=== PATIENT | male | born 1965 | race Caucasian/White ===

== ENCOUNTER 2016-09-22 22:31 | Emergency (ER) | payer MEDICAID ==
[~2016-09-22] VITALS: Ht 154.9 cm; Wt 79.5 kg
[~2016-09-22 22:31] MED LIST: CA C1TAB73 PO; DULO30CA2 PO; FOLI1TAB15 PO; HC2530O TP; QUET400T PO; TRAZ-144 PO; [UNRECOGNIZED DRUG - CODE]; [UNRECOGNIZED DRUG - OTHER]
[2016-09-22 23:24] LABS: BASOPHILS # (AUTO) 0.06 K/uL (0.00-0.20); BASOPHILS % (AUTO) 0.7 % (0.0-2.0); EOSINOPHILS # (AUTO) 0.45 K/uL (0.00-0.70); EOSINOPHILS % (AUTO) 5.37 % (1.0-6.0); HEMATOCRIT 38.2 % (41-53); LYMPHOCYTES # (AUTO) 2.4 K/uL (1.0-4.8); LYMPHOCYTES % (AUTO) 28.2 % (22.0-44.0); MEAN CORPUSCULAR HEMOGLOBIN 30.5 pg (26.0-34.0); MEAN CORPUSCULAR VOLUME 90 fL (80-100); MONOCYTES % (AUTO) 11.3 % (2.0-9.0); NEUTROPHILS # (AUTO) 4.6 K/uL (1.8-7.7); NEUTROPHILS % (AUTO) 54.5 % (40.0-70.0); PLATELET COUNT (AUTO) 314 K/uL (150-450); RED BLOOD CELL COUNT(AUTO) 4.26 MIL/uL (4.50-5.90); RED CELL DISTRIBUTION WIDTH 13.4 % (11.5-14.5); WHITE BLOOD COUNT (AUTO) 8.5 K/uL (4.5-11.0)
[2016-09-22 23:34] LABS: ANION GAP 8 mmol/L (8-16); CALCIUM, TOTAL 8.6 mg/dL (8.8-10.5); CARBON DIOXIDE 28 mmol/L (22-29); CHLORIDE 105 mmol/L (98-107); CREATININE 0.78 mg/dL (0.60-1.30); GLOMERULAR FILTR. RATE CALC > 60 mL/min (>60); POTASSIUM 3.9 mmol/L (3.5-5.1); SODIUM SERUM 141 mmol/L (136-145); UREA NITROGEN, BLOOD 9 mg/dL (7-18)
[2016-09-22 23:40] LABS: ALANINE AMINOTRANSFERASE 60 U/L (12-78); ALBUMIN 3.6 g/dL (3.4-5.0); ASPARTATE AMINOTRANSFERASE 41 U/L (15-37); BILIRUBIN,TOTAL 0.3 mg/dL (0.1-1.0); TOTAL PROTEIN, SERUM 7.2 g/dL (6.4-8.2)
[2016-09-23 08:31] VITALS: BP 113/89
== END 2016-09-23 09:06 | disposition home or self-care (01) ==
LOC: EMS 22:32
DX: L03.115 Cellulitis of right lower limb (principal); F17.210 Nicotine dependence, cigarettes, uncomplicated; G20 Parkinson's disease; Z88.0 Allergy status to penicillin; G89.4 Chronic pain syndrome
CPT/HCPCS: 36415; 80053; 80307; 85025; 99285; G0480

== ENCOUNTER 2016-09-30 10:19 | Inpatient (IN) | payer MEDICAID ==
[~2016-09-30] VITALS: Ht 170.2 cm; Wt 68.1 kg
[~2016-09-30 10:19] MED LIST changes: -CA C1TAB73 PO; -FOLI1TAB15 PO; -[UNRECOGNIZED DRUG - CODE]; -[UNRECOGNIZED DRUG - OTHER]
[2016-09-30] MEDS ORDERED: DiphenhydrAMINE HCL 50 MG/ML VIAL IM ONE (10:45)
[2016-09-30] MEDS ORDERED: LORazepam 2 MG/ML VIAL IM ONE (10:45)
[2016-09-30] MEDS ORDERED: HALOPERIDOL LACTATE 5 MG/ML VIAL IM ONE (10:45)
[2016-09-30 11:11] LABS: BASOPHILS % (AUTO) 0.7 % (0.0-2.0); EOSINOPHILS % (AUTO) 5.2 % (1.0-6.0); HEMATOCRIT 40.7 % (41-53); HEMOGLOBIN 13.7 g/dL (13.5-17.5); LYMPHOCYTES # (AUTO) 1.9 K/uL (1.0-4.8); LYMPHOCYTES % (AUTO) 22.2 % (22.0-44.0); MEAN CORPUSCULAR HEMOGLOBIN 29.9 pg (26.0-34.0); MEAN CORPUSCULAR HGB CONC 33.6 G/dL (31.0-37.0); MEAN CORPUSCULAR VOLUME 89 fL (80-100); MONOCYTES % (AUTO) 11.7 % (2.0-9.0); NEUTROPHILS % (AUTO) 60.2 % (40.0-70.0); PLATELET COUNT (AUTO) 382 K/uL (150-450); RED BLOOD CELL COUNT(AUTO) 4.57 MIL/uL (4.50-5.90); RED CELL DISTRIBUTION WIDTH 13.9 % (11.5-14.5); WHITE BLOOD COUNT (AUTO) 8.3 K/uL (4.5-11.0)
[2016-09-30 11:16] LABS: ANION GAP 9 mmol/L (8-16); CALCIUM, TOTAL 9.4 mg/dL (8.8-10.5); CARBON DIOXIDE 31 mmol/L (22-29); CHLORIDE 105 mmol/L (98-107); CREATININE 0.94 mg/dL (0.60-1.30); GLOMERULAR FILTR. RATE CALC > 60 mL/min (>60); POTASSIUM 4.3 mmol/L (3.5-5.1); SODIUM SERUM 145 mmol/L (136-145); UREA NITROGEN, BLOOD 14 mg/dL (7-18)
[2016-09-30 11:21] LABS: ALANINE AMINOTRANSFERASE 71 U/L (12-78); ALBUMIN 3.9 g/dL (3.4-5.0); ASPARTATE AMINOTRANSFERASE 42 U/L (15-37); BILIRUBIN,TOTAL 0.3 mg/dL (0.1-1.0)
[2016-09-30] MEDS ORDERED: OLANZapine 5 MG RAPDIS TABLET PO PRN (15:15)
[2016-10-01] MEDS: LORazepam 2 MG TABLET PO PRN (01:54)
[2016-10-01 09:24] LABS: CHOL/HDL RATIO 2.1 (4.2-7.3)
[2016-10-01 13:17] VITALS: BP 128/81
[2016-10-01] MEDS ORDERED: TUBERCULIN, PURIFIED PROTEIN DERIVATIVE 5 TU/0.1 ML SYG ID ONE (13:45)
[2016-10-01] MEDS ORDERED: LOPERAMIDE HCL 2 MG CAPSULE PO PRN (13:45)
[2016-10-01] MEDS ORDERED: MAG HYDROX/AL HYDROX/SIMETH ES 30 ML SUSPENSION UDCUP PO PRN (13:45)
[2016-10-01] MEDS ORDERED: MAGNESIUM HYDROXIDE SUSPENSION 30 ML UDCUP PO PRN (13:45)
[2016-10-01] MEDS ORDERED: QUEtiapine FUMARATE 100 MG TABLET PO PRN (13:45)
[2016-10-01] MEDS ORDERED: ACETAMINOPHEN 325 MG TABLET PO PRN (13:45)
[2016-10-01] MEDS ORDERED: PROMETHAZINE HCL 25 MG TABLET PO PRN (13:45)
[2016-10-01] MEDS ORDERED: GuaiFENesin/D-METHORPHAN [SUGAR-FREE] 200-20MG/10 ML SYRUP UDCUP PO PRN (13:45)
[2016-10-01] MEDS ORDERED: PNEUMOCOCCAL VACCINE POLYVALENT 0.5 ML VIAL [PPSV23] IM ONE (14:00)
[2016-10-01] MEDS: GABAPENTIN 100 MG CAPSULE PO SCH ×2 (16:23→21:00)
[2016-10-01 17:32] VITALS: BP 132/89
[2016-10-01] MEDS ORDERED: HALOPERIDOL LACTATE 5 MG/ML VIAL IM ONE (20:30)
[2016-10-01] MEDS ORDERED: DiphenhydrAMINE HCL 50 MG/ML VIAL IM ONE (20:30)
[2016-10-01] MEDS ORDERED: LORazepam 2 MG/ML VIAL IM ONE (20:30)
[2016-10-01] MEDS ORDERED: DiphenhydrAMINE HCL 50 MG/ML VIAL ONE (20:36)
[2016-10-01] MEDS ORDERED: HALOPERIDOL LACTATE 5 MG/ML VIAL ONE (20:36)
[2016-10-01] MEDS: THIAMINE HCL 100 MG TABLET PO SCH (21:00)
[2016-10-01] MEDS: QUEtiapine FUMARATE 200 MG TABLET PO SCH (21:00)
[2016-10-02 05:28] VITALS: BP 128/85
[2016-10-02 08:40] VITALS: BP 107/67
[2016-10-02] MEDS: LORazepam 2 MG TABLET PO PRN (08:45)
[2016-10-02] MEDS: MULTIVITAMINS WITH MINERALS, THERAPEUTIC TABLET PO SCH (08:45)
[2016-10-02] MEDS: GABAPENTIN 100 MG CAPSULE PO SCH ×5 (08:45→20:53)
[2016-10-02] MEDS: HydrOXYzine PAMOATE 50 MG CAPSULE PO PRN (08:45)
[2016-10-02] MEDS: THIAMINE HCL 100 MG TABLET PO SCH ×2 (08:46→16:31)
[2016-10-02] MEDS: DULoxetine HCL 20 MG CAPSULE PO SCH (08:46)
[2016-10-02] MEDS: FOLIC ACID 1 MG TABLET PO SCH (08:46)
[2016-10-02 17:51] VITALS: BP 120/77
[2016-10-02] MEDS: QUEtiapine FUMARATE 200 MG TABLET PO SCH (20:53)
[2016-10-03] MEDS: DULoxetine HCL 20 MG CAPSULE PO SCH (08:18)
[2016-10-03] MEDS: GABAPENTIN 100 MG CAPSULE PO SCH ×4 (08:18→20:50)
[2016-10-03] MEDS: MULTIVITAMINS WITH MINERALS, THERAPEUTIC TABLET PO SCH (08:18)
[2016-10-03] MEDS: THIAMINE HCL 100 MG TABLET PO SCH ×2 (08:18→16:56)
[2016-10-03] MEDS: FOLIC ACID 1 MG TABLET PO SCH (08:18)
[2016-10-03 09:05] VITALS: BP 159/111
[2016-10-03] MEDS: NICOTINE 21 MG/24 HOUR PATCH TD SCH (09:39)
[2016-10-03] MEDS: LORazepam 2 MG TABLET PO PRN (10:21)
[2016-10-03] MEDS: HydrOXYzine PAMOATE 50 MG CAPSULE PO PRN (10:21)
[2016-10-03 18:13] VITALS: BP 122/90
[2016-10-03] MEDS: QUEtiapine FUMARATE 200 MG TABLET PO SCH (20:50)
[2016-10-04] MEDS: ZOLPIDEM TARTRATE 10 MG TABLET PO PRN (02:49)
[2016-10-04 02:58] VITALS: BP 116/78
[2016-10-04 08:53] VITALS: BP 108/83
[2016-10-04] MEDS: THIAMINE HCL 100 MG TABLET PO SCH ×2 (09:16→17:45)
[2016-10-04] MEDS: GABAPENTIN 100 MG CAPSULE PO SCH ×4 (09:16→20:57)
[2016-10-04] MEDS: MULTIVITAMINS WITH MINERALS, THERAPEUTIC TABLET PO SCH (09:16)
[2016-10-04] MEDS: DULoxetine HCL 20 MG CAPSULE PO SCH (09:16)
[2016-10-04] MEDS: FOLIC ACID 1 MG TABLET PO SCH (09:16)
[2016-10-04] MEDS: NICOTINE 21 MG/24 HOUR PATCH TD SCH (09:22)
[2016-10-04 16:30] VITALS: BP 118/81
[2016-10-04] MEDS ORDERED: GABA-529 PO (16:54)
[2016-10-04] MEDS ORDERED: DULO20CA30 PO (16:54)
[2016-10-04] MEDS ORDERED: QUET200T29 PO (16:54)
[2016-10-04] MEDS: QUEtiapine FUMARATE 200 MG TABLET PO SCH (20:58)
[2016-10-04] MEDS ORDERED: NICOTINE 21 MG/24 HOUR PATCH TD ONE (21:00)
[2016-10-05] MEDS: ZOLPIDEM TARTRATE 10 MG TABLET PO PRN (00:10)
[2016-10-05] MEDS: GABAPENTIN 100 MG CAPSULE PO SCH (08:26)
[2016-10-05] MEDS: THIAMINE HCL 100 MG TABLET PO SCH (08:26)
[2016-10-05] MEDS: MULTIVITAMINS WITH MINERALS, THERAPEUTIC TABLET PO SCH (08:26)
[2016-10-05] MEDS: DULoxetine HCL 20 MG CAPSULE PO SCH (08:26)
[2016-10-05] MEDS: FOLIC ACID 1 MG TABLET PO SCH (08:26)
[2016-10-05] MEDS: NICOTINE 21 MG/24 HOUR PATCH TD SCH (08:34)
== END 2016-10-05 12:45 | disposition home or self-care (01) | DRG 751 ==
LOC: EEVIPCON 10:20 → EMS 10:20 → AHU 10-01 12:11 → 3EC 10-01 21:00
PROVIDERS: ADMIT Psychiatry & Neurology Psychiatry; ATTEND Psychiatry & Neurology Psychiatry
DX: F29 Unspecified psychosis not due to a substance or known physiological condition (principal); G20 Parkinson's disease; F25.9 Schizoaffective disorder, unspecified; G35 Multiple sclerosis; J44.9 Chronic obstructive pulmonary disease, unspecified; B19.20 Unspecified viral hepatitis C without hepatic coma; R45.87 Impulsiveness; F17.210 Nicotine dependence, cigarettes, uncomplicated; G89.29 Other chronic pain; Z91.19 Patient's noncompliance with other medical treatment and regimen; Z59.0 Homelessness; Z79.899 Other long term (current) drug therapy; Z80.0 Family history of malignant neoplasm of digestive organs; Z82.0 Family history of epilepsy and other diseases of the nervous system; Z90.49 Acquired absence of other specified parts of digestive tract; Z59.9 Problem related to housing and economic circumstances, unspecified; Q79.8 Other congenital malformations of musculoskeletal system; Z88.6 Allergy status to analgesic agent; Z88.0 Allergy status to penicillin; Z28.21 Immunization not carried out because of patient refusal; F32.9 Major depressive disorder, single episode, unspecified
CPT/HCPCS: 96372; 99285; G0480; J1200; J1630; J2060

== ENCOUNTER 2016-10-09 16:37 | Emergency (ER) | payer MEDICAID ==
[~2016-10-09] VITALS: Ht 170.2 cm; Wt 81.0 kg
[~2016-10-09 16:37] MED LIST changes: +DULO20CA30 PO; -DULO30CA2 PO; +GABA-529 PO; -HC2530O TP; +QUET200T29 PO; -QUET400T PO; -TRAZ-144 PO
[2016-10-09] MEDS: AZITHROMYCIN 250 MG TABLET PO ONE ×2 (18:47→19:50)
[2016-10-09] MEDS: KETOROLAC TROMETHAMINE 60 MG/2 ML VIAL IM ONE ×2 (18:47→19:48)
[2016-10-09 19:30] VITALS: BP 152/89
[2016-10-09] MEDS ORDERED: CefTRIAXone SODIUM 1 GM/VIAL IM ONE (19:45)
[2016-10-09] MEDS ORDERED: LIDOCAINE HCL/PF 1% 2 ML VIAL IM ONE (19:45)
== END 2016-10-09 20:06 | disposition home or self-care (01) ==
LOC: EMS 16:38
DX: M79.671 Pain in right foot (principal); J32.9 Chronic sinusitis, unspecified; F25.9 Schizoaffective disorder, unspecified; F17.210 Nicotine dependence, cigarettes, uncomplicated; F11.90 Opioid use, unspecified, uncomplicated; F19.90 Other psychoactive substance use, unspecified, uncomplicated; Z88.0 Allergy status to penicillin; Z88.5 Allergy status to narcotic agent
CPT/HCPCS: 96372; 99284; 99406; J0696; J1885; J3490

== ENCOUNTER 2016-10-16 18:25 | Emergency (ER) | payer MEDICAID ==
[~2016-10-16] VITALS: Ht 165.1 cm; Wt 81.8 kg
[2016-10-16 22:09] VITALS: BP 128/88
== END 2016-10-16 22:12 | disposition home or self-care (01) ==
LOC: EMS 18:27
DX: S90.31XA Contusion of right foot, initial encounter (principal); F17.210 Nicotine dependence, cigarettes, uncomplicated; F11.90 Opioid use, unspecified, uncomplicated; F19.90 Other psychoactive substance use, unspecified, uncomplicated; Z88.0 Allergy status to penicillin; X58.XXXA Exposure to other specified factors, initial encounter; Y93.01 Activity, walking, marching and hiking; Y92.89 Other specified places as the place of occurrence of the external cause; Y99.8 Other external cause status
CPT/HCPCS: 99284

== ENCOUNTER 2017-04-15 10:33 | Inpatient (IN) | payer MEDICAID ==
[~2017-04-15] VITALS: Ht 167.6 cm; Wt 78.2 kg
[2017-04-15 11:14] LABS: ANION GAP 7 mmol/L (8-16); BASOPHILS % (AUTO) 0.2 % (0.0-2.0); CALCIUM, TOTAL 9.5 mg/dL (8.8-10.5); CARBON DIOXIDE 27 mmol/L (22-29); CHLORIDE 104 mmol/L (98-107); CREATININE 0.75 mg/dL (0.60-1.30); GLOMERULAR FILTR. RATE CALC > 60 mL/min (>60); GLUCOSE,RANDOM 100 mg/dL (70-110); HEMOGLOBIN 15.1 g/dL (13.5-17.5); LYMPHOCYTES # (AUTO) 1.3 K/uL (1.0-4.8); LYMPHOCYTES % (AUTO) 16.1 % (22.0-44.0); MEAN CORPUSCULAR HEMOGLOBIN 29.1 pg (26.0-34.0); MEAN CORPUSCULAR HGB CONC 33.6 G/dL (31.0-37.0); MEAN CORPUSCULAR VOLUME 86 fL (80-100); MONOCYTES # (AUTO) 0.6 K/uL (0.1-1.0); MONOCYTES % (AUTO) 7.2 % (2.0-9.0); NEUTROPHILS % (AUTO) 72.5 % (40.0-70.0); PLATELET COUNT (AUTO) 409 K/uL (150-450); POTASSIUM 4.8 mmol/L (3.5-5.1); RED BLOOD CELL COUNT(AUTO) 5.21 MIL/uL (4.50-5.90); RED CELL DISTRIBUTION WIDTH 14.4 % (11.5-14.5); SODIUM SERUM 138 mmol/L (136-145); UREA NITROGEN, BLOOD 14 mg/dL (7-18)
[2017-04-15 11:19] LABS: ALANINE AMINOTRANSFERASE 94 U/L (12-78); ALBUMIN 3.8 g/dL (3.4-5.0); ALKALINE PHOSPHATASE 91 U/L (46-116); ASPARTATE AMINOTRANSFERASE 61 U/L (15-37); BILIRUBIN,TOTAL 0.5 mg/dL (0.1-1.0); TOTAL PROTEIN, SERUM 7.8 g/dL (6.4-8.2)
[2017-04-15 12:14] LABS: AMPHET/METH SCREEN,URINE NEGATIVE (NEGATIVE); BARBITURATE SCREEN, URINE NEGATIVE (NEGATIVE); BENZODIAZEPINES SCREEN,URINE NEGATIVE (NEGATIVE); CANNABINOID SCREEN,URINE NEGATIVE (NEGATIVE); COCAINE SCREEN,URINE NEGATIVE (NEGATIVE); METHADONE SCREEN, URINE NEGATIVE (NEGATIVE); OPIATE SCREEN,URINE NEGATIVE (NEGATIVE)
[2017-04-15 12:16] LABS: PHENCYCLIDINE SCREEN,URINE NEGATIVE (NEGATIVE)
[2017-04-15] MEDS ORDERED: QUEtiapine FUMARATE 100 MG TABLET PO ONE (17:00)
[2017-04-15] MEDS ORDERED: LORazepam 2 MG TABLET PO ONE (17:00)
[2017-04-15] MEDS: QUEtiapine FUMARATE 200 MG TABLET PO SCH (21:00)
[2017-04-16] MEDS: HALOPERIDOL 5 MG TABLET PO PRN (10:29)
[2017-04-16] MEDS: LORazepam 2 MG TABLET PO PRN (10:29)
[2017-04-16 17:00] VITALS: BP 103/61
[2017-04-16 20:04] VITALS: BP 101/60
[2017-04-16] MEDS: QUEtiapine FUMARATE 200 MG TABLET PO SCH (20:30)
[2017-04-17 06:03] VITALS: BP 106/71
[2017-04-17] MEDS ORDERED: MOMETASONE FUROATE 50 MCG/SPRAY 17 GM NASAL SPRAY NASAL PRN ×2 (07:45→12:30)
[2017-04-17 08:05] VITALS: BP 126/46
[2017-04-17 08:27] VITALS: BP 103/65
[2017-04-17] MEDS: DULoxetine HCL 20 MG CAPSULE PO SCH (11:59)
[2017-04-17] MEDS: GABAPENTIN 100 MG CAPSULE PO SCH ×3 (14:07→21:00)
[2017-04-17] MEDS ORDERED: LORazepam 2 MG/ML VIAL ONE (16:37)
[2017-04-17] MEDS ORDERED: HALOPERIDOL LACTATE 5 MG/ML VIAL ONE (16:37)
[2017-04-17] MEDS ORDERED: DiphenhydrAMINE HCL 50 MG/ML VIAL ONE (16:38)
[2017-04-17] MEDS ORDERED: DiphenhydrAMINE HCL 50 MG/ML VIAL IM ONE (16:45)
[2017-04-17] MEDS ORDERED: HALOPERIDOL LACTATE 5 MG/ML VIAL IM ONE (16:45)
[2017-04-17] MEDS ORDERED: LORazepam 2 MG/ML VIAL IM ONE (16:45)
[2017-04-17 18:53] VITALS: BP 118/73
[2017-04-17] MEDS: QUEtiapine FUMARATE 200 MG TABLET PO SCH (21:00)
[2017-04-18] MEDS: LORazepam 2 MG TABLET PO PRN ×2 (02:30→08:52)
[2017-04-18 02:46] VITALS: BP 114/69
[2017-04-18] MEDS: ZOLPIDEM TARTRATE 10 MG TABLET PO PRN (02:51)
[2017-04-18] MEDS: HALOPERIDOL 5 MG TABLET PO PRN ×2 (02:51→08:52)
[2017-04-18] MEDS: DULoxetine HCL 20 MG CAPSULE PO SCH (08:51)
[2017-04-18] MEDS: GABAPENTIN 100 MG CAPSULE PO SCH ×5 (08:51→20:55)
[2017-04-18] MEDS: CHOLECALCIFEROL (VIT D3) 1,000 UNITS TABLET PO SCH (08:52)
[2017-04-18 16:44] VITALS: BP 115/72
[2017-04-18] MEDS: QUEtiapine FUMARATE 200 MG TABLET PO SCH (20:55)
[2017-04-19 00:15] VITALS: BP 137/77
[2017-04-19 08:01] VITALS: BP 116/71
[2017-04-19] MEDS: CHOLECALCIFEROL (VIT D3) 1,000 UNITS TABLET PO SCH (08:48)
[2017-04-19] MEDS: LORazepam 2 MG TABLET PO PRN (08:48)
[2017-04-19] MEDS: GABAPENTIN 100 MG CAPSULE PO SCH ×4 (08:48→20:54)
[2017-04-19] MEDS: HALOPERIDOL 5 MG TABLET PO PRN (08:48)
[2017-04-19] MEDS: DULoxetine HCL 20 MG CAPSULE PO SCH (08:49)
[2017-04-19] MEDS: QUEtiapine FUMARATE 200 MG TABLET PO SCH (08:49)
[2017-04-19 17:07] VITALS: BP 109/76
[2017-04-20] MEDS: DULoxetine HCL 20 MG CAPSULE PO SCH (09:25)
[2017-04-20] MEDS: GABAPENTIN 100 MG CAPSULE PO SCH ×4 (09:25→20:07)
[2017-04-20] MEDS: CHOLECALCIFEROL (VIT D3) 1,000 UNITS TABLET PO SCH (09:25)
[2017-04-20 10:00] VITALS: BP 110/68
[2017-04-20 17:24] VITALS: BP 109/78
[2017-04-20] MEDS: QUEtiapine FUMARATE 200 MG TABLET PO SCH (20:07)
[2017-04-20] MEDS: ZOLPIDEM TARTRATE 10 MG TABLET PO PRN (20:35)
[2017-04-21] MEDS: GABAPENTIN 100 MG CAPSULE PO SCH ×4 (08:48→20:31)
[2017-04-21] MEDS: DULoxetine HCL 20 MG CAPSULE PO SCH (08:48)
[2017-04-21] MEDS: CHOLECALCIFEROL (VIT D3) 1,000 UNITS TABLET PO SCH (08:48)
[2017-04-21 09:10] VITALS: BP 111/66
[2017-04-21 18:53] VITALS: BP 120/74
[2017-04-21] MEDS: QUEtiapine FUMARATE 200 MG TABLET PO SCH (20:31)
[2017-04-22] MEDS: CHOLECALCIFEROL (VIT D3) 1,000 UNITS TABLET PO SCH (09:14)
[2017-04-22] MEDS: DULoxetine HCL 20 MG CAPSULE PO SCH (09:14)
[2017-04-22] MEDS: GABAPENTIN 100 MG CAPSULE PO SCH ×4 (09:14→20:53)
[2017-04-22 09:28] VITALS: BP 112/60
[2017-04-22 11:00] VITALS: BP 96/75
[2017-04-22 11:12] VITALS: BP 96/75
[2017-04-22] MEDS ORDERED: IBUPROFEN 600 MG TABLET PO PRN (11:30)
[2017-04-22] MEDS ORDERED: ACETAMINOPHEN 325 MG TABLET PO PRN (11:30)
[2017-04-22 16:00] VITALS: BP 105/63
[2017-04-22] MEDS: BACITRACIN 28.4 GM OINTMENT TP SCH (17:50)
[2017-04-22] MEDS: QUEtiapine FUMARATE 200 MG TABLET PO SCH (20:54)
[2017-04-23 08:19] VITALS: BP 119/71
[2017-04-23] MEDS: GABAPENTIN 100 MG CAPSULE PO SCH ×4 (08:24→20:20)
[2017-04-23] MEDS: CHOLECALCIFEROL (VIT D3) 1,000 UNITS TABLET PO SCH (08:24)
[2017-04-23] MEDS: DULoxetine HCL 20 MG CAPSULE PO SCH (08:24)
[2017-04-23] MEDS: BACITRACIN 28.4 GM OINTMENT TP SCH ×2 (08:25→16:35)
[2017-04-23 16:01] VITALS: BP 102/65
[2017-04-23] MEDS: QUEtiapine FUMARATE 200 MG TABLET PO SCH (20:20)
[2017-04-24] MEDS ORDERED: LORazepam 2 MG TABLET PO PRN (02:15)
[2017-04-24] MEDS ORDERED: ZOLPIDEM TARTRATE 10 MG TABLET PO PRN (02:15)
[2017-04-24] MEDS: CHOLECALCIFEROL (VIT D3) 1,000 UNITS TABLET PO SCH (08:37)
[2017-04-24] MEDS: GABAPENTIN 100 MG CAPSULE PO SCH ×4 (08:37→20:20)
[2017-04-24] MEDS: BACITRACIN 28.4 GM OINTMENT TP SCH ×2 (08:38→16:23)
[2017-04-24] MEDS: DULoxetine HCL 20 MG CAPSULE PO SCH (08:38)
[2017-04-24 09:32] VITALS: BP 122/69
[2017-04-24 17:30] VITALS: BP 142/71
[2017-04-24] MEDS: QUEtiapine FUMARATE 200 MG TABLET PO SCH (20:20)
[2017-04-25 08:00] VITALS: BP 113/70
[2017-04-25] MEDS: DULoxetine HCL 20 MG CAPSULE PO SCH (08:55)
[2017-04-25] MEDS: CHOLECALCIFEROL (VIT D3) 1,000 UNITS TABLET PO SCH (08:56)
[2017-04-25] MEDS: GABAPENTIN 100 MG CAPSULE PO SCH ×4 (08:56→20:22)
[2017-04-25] MEDS: BACITRACIN 28.4 GM OINTMENT TP SCH ×2 (08:57→16:42)
[2017-04-25 16:18] VITALS: BP 125/74
[2017-04-25] MEDS: QUEtiapine FUMARATE 200 MG TABLET PO SCH (20:22)
[2017-04-26] MEDS: DULoxetine HCL 20 MG CAPSULE PO SCH (09:03)
[2017-04-26] MEDS: BACITRACIN 28.4 GM OINTMENT TP SCH ×2 (09:03→17:30)
[2017-04-26] MEDS: CHOLECALCIFEROL (VIT D3) 1,000 UNITS TABLET PO SCH (09:03)
[2017-04-26] MEDS: GABAPENTIN 100 MG CAPSULE PO SCH ×4 (09:03→20:26)
[2017-04-26 16:08] VITALS: BP 121/78
[2017-04-26] MEDS: QUEtiapine FUMARATE 200 MG TABLET PO SCH (20:26)
[2017-04-27] MEDS: DULoxetine HCL 20 MG CAPSULE PO SCH (08:37)
[2017-04-27] MEDS: CHOLECALCIFEROL (VIT D3) 1,000 UNITS TABLET PO SCH (08:37)
[2017-04-27] MEDS: GABAPENTIN 100 MG CAPSULE PO SCH ×4 (08:37→20:38)
[2017-04-27] MEDS: BACITRACIN 28.4 GM OINTMENT TP SCH ×2 (08:54→17:51)
[2017-04-27 16:02] VITALS: BP 121/73
[2017-04-27] MEDS: QUEtiapine FUMARATE 200 MG TABLET PO SCH (20:38)
[2017-04-28] MEDS: GABAPENTIN 100 MG CAPSULE PO SCH ×2 (08:27→12:34)
[2017-04-28] MEDS: CHOLECALCIFEROL (VIT D3) 1,000 UNITS TABLET PO SCH (08:27)
[2017-04-28] MEDS: DULoxetine HCL 20 MG CAPSULE PO SCH (08:27)
[2017-04-28 09:00] VITALS: BP 118/67
[2017-04-28] MEDS: BACITRACIN 28.4 GM OINTMENT TP SCH (11:54)
[2017-04-28] MEDS ORDERED: GABA-529 PO (12:32)
[2017-04-28] MEDS ORDERED: QUET200T PO (12:32)
[2017-04-28] MEDS ORDERED: VITAD1000 PO (12:32)
[2017-04-28] MEDS ORDERED: DULO20CA30 PO (12:32)
== END 2017-04-28 16:15 | disposition home or self-care (01) | DRG 750 ==
LOC: EMS 10:35 → AHU 04-16 08:08 → 3EC 04-19 00:05
PROVIDERS: ADMIT Psychiatry & Neurology Psychiatry; ATTEND Psychiatry & Neurology Child & Adolescent Psychiatry
DX: F25.9 Schizoaffective disorder, unspecified (principal); G20 Parkinson's disease; R45.851 Suicidal ideations; G35 Multiple sclerosis; R45.850 Homicidal ideations; G89.4 Chronic pain syndrome; F11.90 Opioid use, unspecified, uncomplicated; F15.90 Other stimulant use, unspecified, uncomplicated; F17.210 Nicotine dependence, cigarettes, uncomplicated; Z88.5 Allergy status to narcotic agent; Z88.0 Allergy status to penicillin
CPT/HCPCS: 82652; 87081; 92610; 97163; 97166; 97530; 97535; 99285; G0480; J1200; J1630; J2060

== ENCOUNTER 2017-10-26 08:19 | Inpatient (IN) | payer MEDICAID ==
[~2017-10-26] VITALS: Ht 165.1 cm; Wt 72.7 kg
[~2017-10-26 08:19] MED LIST changes: +QUET200T PO; -QUET200T29 PO; +VITAD1000 PO
[2017-10-26 08:55] LABS: BASOPHILS % (AUTO) 1.4 % (0.0-2.0); EOSINOPHILS % (AUTO) 5.2 % (1.0-6.0); HEMATOCRIT 44.1 % (41-53); HEMOGLOBIN 14.9 g/dL (13.5-17.5); LYMPHOCYTES # (AUTO) 1.9 K/uL (1.0-4.8); MEAN CORPUSCULAR HEMOGLOBIN 29.5 pg (26.0-34.0); MEAN CORPUSCULAR HGB CONC 33.8 G/dL (31.0-37.0); MEAN CORPUSCULAR VOLUME 87 fL (80-100); MONOCYTES # (AUTO) 0.7 K/uL (0.1-1.0); MONOCYTES % (AUTO) 10.2 % (2.0-9.0); NEUTROPHILS # (AUTO) 3.5 K/uL (1.8-7.7); NEUTROPHILS % (AUTO) 54.2 % (40.0-70.0); PLATELET COUNT (AUTO) 262 K/uL (150-450); RED BLOOD CELL COUNT(AUTO) 5.06 MIL/uL (4.50-5.90); RED CELL DISTRIBUTION WIDTH 13.7 % (11.5-14.5)
[2017-10-26 09:07] LABS: ANION GAP 8 mmol/L (8-16); CALCIUM, TOTAL 9.1 mg/dL (8.8-10.5); CARBON DIOXIDE 30 mmol/L (22-29); CHLORIDE 104 mmol/L (98-107); CREATININE 0.93 mg/dL (0.60-1.30); GLOMERULAR FILTR. RATE CALC > 60 mL/min (>60); GLUCOSE,RANDOM 93 mg/dL (70-110); POTASSIUM 4.3 mmol/L (3.5-5.1); SODIUM SERUM 142 mmol/L (136-145); UREA NITROGEN, BLOOD 6 mg/dL (7-18)
[2017-10-26 09:21] LABS: ALANINE AMINOTRANSFERASE 94 U/L (12-78); ALBUMIN 3.9 g/dL (3.4-5.0); ALKALINE PHOSPHATASE 84 U/L (46-116); ASPARTATE AMINOTRANSFERASE 47 U/L (15-37); BILIRUBIN,TOTAL 0.4 mg/dL (0.1-1.0); TOTAL PROTEIN, SERUM 7.4 g/dL (6.4-8.2)
[2017-10-26] MEDS ORDERED: QUEtiapine FUMARATE 100 MG TABLET PO PRN (11:15)
[2017-10-26] MEDS ORDERED: LORazepam 2 MG TABLET PO PRN (11:15)
[2017-10-26] MEDS: GABAPENTIN 100 MG CAPSULE PO SCH ×3 (12:26→21:00)
[2017-10-26 14:45] LABS: AMPHET/METH SCREEN,URINE NEGATIVE (NEGATIVE); BARBITURATE SCREEN, URINE NEGATIVE (NEGATIVE); BENZODIAZEPINES SCREEN,URINE NEGATIVE (NEGATIVE); CANNABINOID SCREEN,URINE NEGATIVE (NEGATIVE); COCAINE SCREEN,URINE NEGATIVE (NEGATIVE); METHADONE SCREEN, URINE NEGATIVE (NEGATIVE); OPIATE SCREEN,URINE NEGATIVE (NEGATIVE); PHENCYCLIDINE SCREEN,URINE NEGATIVE (NEGATIVE)
[2017-10-26] MEDS: QUEtiapine FUMARATE 200 MG TABLET PO SCH (21:00)
[2017-10-26] MEDS ORDERED: ACETAMINOPHEN 325 MG TABLET PO PRN (21:15)
[2017-10-26] MEDS ORDERED: BACITRACIN 28.4 GM OINTMENT TP PRN (21:15)
[2017-10-26] MEDS ORDERED: IBUPROFEN 600 MG TABLET PO PRN (21:15)
[2017-10-26] MEDS ORDERED: CloNIDine HCL 0.1 MG TABLET PO PRN (21:15)
[2017-10-26] MEDS ORDERED: LOPERAMIDE HCL 2 MG CAPSULE PO PRN (21:15)
[2017-10-26] MEDS ORDERED: BENZOCAINE/MENTHOL LOZENGE MM PRN (21:15)
[2017-10-26] MEDS ORDERED: ALBUTEROL SULFATE HFA 90 MCG/PUFF 8 GM INHALER IH PRN (21:15)
[2017-10-26] MEDS ORDERED: MAG HYDROX/AL HYDROX/SIMETH ES 30 ML SUSPENSION UDCUP PO PRN (21:15)
[2017-10-26] MEDS ORDERED: ONDANSETRON HCL 4 MG TABLET PO PRN (21:15)
[2017-10-26] MEDS ORDERED: MAGNESIUM HYDROXIDE SUSPENSION 30 ML UDCUP PO PRN (21:15)
[2017-10-26] MEDS ORDERED: PETROLATUM,WHITE 71 GM JELLY TP PRN (21:15)
[2017-10-27 08:30] VITALS: BP 116/65
[2017-10-27] MEDS: DOCUSATE SODIUM 100 MG CAPSULE PO SCH (08:42)
[2017-10-27] MEDS: DULoxetine HCL 20 MG CAPSULE PO SCH (08:42)
[2017-10-27] MEDS: GABAPENTIN 100 MG CAPSULE PO SCH ×4 (08:42→20:17)
[2017-10-27] MEDS: OMEPRAZOLE 20 MG CAPSULE PO SCH (08:42)
[2017-10-27 16:23] VITALS: BP 114/78
[2017-10-27] MEDS: QUEtiapine FUMARATE 200 MG TABLET PO SCH (20:18)
[2017-10-27] MEDS: ZOLPIDEM TARTRATE 10 MG TABLET PO PRN (20:20)
[2017-10-28] MEDS: DOCUSATE SODIUM 100 MG CAPSULE PO SCH ×2 (08:48→09:00)
[2017-10-28] MEDS: DULoxetine HCL 20 MG CAPSULE PO SCH ×2 (08:48→09:00)
[2017-10-28] MEDS: OMEPRAZOLE 20 MG CAPSULE PO SCH ×2 (08:48→09:00)
[2017-10-28] MEDS: GABAPENTIN 100 MG CAPSULE PO SCH ×5 (08:49→20:56)
[2017-10-28] MEDS: CHOLECALCIFEROL (VIT D3) 1,000 UNITS TABLET PO SCH ×2 (08:49→09:00)
[2017-10-28 18:19] VITALS: BP 111/60
[2017-10-28] MEDS: QUEtiapine FUMARATE 200 MG TABLET PO SCH (20:57)
[2017-10-28] MEDS: ZOLPIDEM TARTRATE 10 MG TABLET PO PRN (23:57)
[2017-10-29] MEDS ORDERED: DULO20CA30 PO (08:22)
[2017-10-29] MEDS ORDERED: VITAD1000 PO (08:22)
[2017-10-29] MEDS ORDERED: DSS100 PO (08:22)
[2017-10-29] MEDS ORDERED: GABA-529 PO (08:23)
[2017-10-29] MEDS ORDERED: OMEP20 PO (08:24)
[2017-10-29] MEDS ORDERED: QUET200T PO (08:25)
[2017-10-29 08:28] VITALS: BP 88/58
[2017-10-29] MEDS: OMEPRAZOLE 20 MG CAPSULE PO SCH (09:01)
[2017-10-29] MEDS: GABAPENTIN 100 MG CAPSULE PO SCH (09:01)
[2017-10-29] MEDS: DULoxetine HCL 20 MG CAPSULE PO SCH (09:01)
[2017-10-29] MEDS: CHOLECALCIFEROL (VIT D3) 1,000 UNITS TABLET PO SCH (09:01)
[2017-10-29] MEDS: DOCUSATE SODIUM 100 MG CAPSULE PO SCH (09:01)
== END 2017-10-29 09:50 | disposition home or self-care (01) | DRG 750 ==
LOC: EMS 08:20 → 3EC 19:03 → 3EI 10-27 21:36
PROVIDERS: ADMIT Psychiatry & Neurology Psychiatry; ATTEND Psychiatry & Neurology Psychiatry
DX: F25.9 Schizoaffective disorder, unspecified (principal); G20 Parkinson's disease; E55.9 Vitamin D deficiency, unspecified; B19.20 Unspecified viral hepatitis C without hepatic coma; F11.90 Opioid use, unspecified, uncomplicated; F15.90 Other stimulant use, unspecified, uncomplicated; F17.210 Nicotine dependence, cigarettes, uncomplicated; F12.90 Cannabis use, unspecified, uncomplicated; G89.29 Other chronic pain; Z88.0 Allergy status to penicillin; Z88.5 Allergy status to narcotic agent; Z59.0 Homelessness; Z79.899 Other long term (current) drug therapy; Q79.8 Other congenital malformations of musculoskeletal system; Z99.3 Dependence on wheelchair; Z90.49 Acquired absence of other specified parts of digestive tract; Z56.0 Unemployment, unspecified
CPT/HCPCS: 99285; G0480

== ENCOUNTER 2017-12-02 12:55 | Emergency (ER) | payer MEDICAID ==
[~2017-12-02] VITALS: Ht 170.2 cm; Wt 79.5 kg
[~2017-12-02 12:55] MED LIST changes: +DSS100 PO; +OMEP20 PO
[2017-12-02 13:44] LABS: AMPHET/METH SCREEN,URINE NEGATIVE (NEGATIVE); BARBITURATE SCREEN, URINE NEGATIVE (NEGATIVE); BENZODIAZEPINES SCREEN,URINE NEGATIVE (NEGATIVE); CANNABINOID SCREEN,URINE NEGATIVE (NEGATIVE); COCAINE SCREEN,URINE NEGATIVE (NEGATIVE); METHADONE SCREEN, URINE NEGATIVE (NEGATIVE); OPIATE SCREEN,URINE NEGATIVE (NEGATIVE)
[2017-12-02 13:45] LABS: PHENCYCLIDINE SCREEN,URINE NEGATIVE (NEGATIVE)
[2017-12-02 14:02] LABS: BASOPHILS % (AUTO) 0.8 % (0.0-2.0); EOSINOPHILS % (AUTO) 6.1 % (1.0-6.0); HEMATOCRIT 43.1 % (41-53); HEMOGLOBIN 14.6 g/dL (13.5-17.5); LYMPHOCYTES # (AUTO) 1.6 K/uL (1.0-4.8); LYMPHOCYTES % (AUTO) 23.4 % (22.0-44.0); MEAN CORPUSCULAR HEMOGLOBIN 29.4 pg (26.0-34.0); MEAN CORPUSCULAR HGB CONC 33.9 G/dL (31.0-37.0); MEAN CORPUSCULAR VOLUME 87 fL (80-100); MONOCYTES # (AUTO) 0.9 K/uL (0.1-1.0); MONOCYTES % (AUTO) 12.3 % (2.0-9.0); NEUTROPHILS % (AUTO) 57.4 % (40.0-70.0); PLATELET COUNT (AUTO) 281 K/uL (150-450); RED BLOOD CELL COUNT(AUTO) 4.96 MIL/uL (4.50-5.90); RED CELL DISTRIBUTION WIDTH 13.5 % (11.5-14.5)
[2017-12-02 14:18] LABS: ANION GAP 6 mmol/L (8-16); CARBON DIOXIDE 32 mmol/L (22-29); CHLORIDE 108 mmol/L (98-107); CREATININE 0.87 mg/dL (0.60-1.30); GLOMERULAR FILTR. RATE CALC > 60 mL/min (>60); GLUCOSE,RANDOM 89 mg/dL (70-110); POTASSIUM 4.3 mmol/L (3.5-5.1); SODIUM SERUM 146 mmol/L (136-145); UREA NITROGEN, BLOOD 12 mg/dL (7-18)
[2017-12-02 14:20] LABS: ALANINE AMINOTRANSFERASE 92 U/L (12-78); ALBUMIN 3.4 g/dL (3.4-5.0); ALKALINE PHOSPHATASE 81 U/L (46-116); ASPARTATE AMINOTRANSFERASE 47 U/L (15-37); BILIRUBIN,TOTAL 0.4 mg/dL (0.1-1.0); TOTAL PROTEIN, SERUM 7.3 g/dL (6.4-8.2)
[2017-12-02 15:48] VITALS: BP 118/74
== END 2017-12-02 15:57 | disposition home or self-care (01) ==
LOC: EMS 12:55
DX: F25.9 Schizoaffective disorder, unspecified (principal); G20 Parkinson's disease; F17.210 Nicotine dependence, cigarettes, uncomplicated; Q79.8 Other congenital malformations of musculoskeletal system; F11.90 Opioid use, unspecified, uncomplicated; F15.90 Other stimulant use, unspecified, uncomplicated; Z59.0 Homelessness; Z79.899 Other long term (current) drug therapy; Z88.0 Allergy status to penicillin; Z88.5 Allergy status to narcotic agent
CPT/HCPCS: 36415; 80053; 80307; 85025; 99285; 99406; G0480

== ENCOUNTER 2017-12-02 17:10 | Emergency (ER) | payer MEDICAID ==
[~2017-12-02] VITALS: Ht 172.7 cm; Wt 84.0 kg
[2017-12-02] MEDS ORDERED: OMEPRAZOLE 20 MG CAPSULE PO ONE (17:45)
[2017-12-02] MEDS ORDERED: QUEtiapine FUMARATE 100 MG TABLET PO ONE (17:45)
[2017-12-02] MEDS ORDERED: GABAPENTIN 100 MG CAPSULE PO ONE (17:45)
[2017-12-02] MEDS ORDERED: HALOPERIDOL LACTATE 5 MG/ML VIAL IM ONE (18:15)
[2017-12-02 20:04] VITALS: BP 118/81
== END 2017-12-02 20:05 | disposition home or self-care (01) ==
LOC: EMS 17:11
DX: F69 Unspecified disorder of adult personality and behavior (principal); Q79.8 Other congenital malformations of musculoskeletal system; F20.9 Schizophrenia, unspecified; G20 Parkinson's disease; G89.4 Chronic pain syndrome; F17.210 Nicotine dependence, cigarettes, uncomplicated; F15.10 Other stimulant abuse, uncomplicated; F14.10 Cocaine abuse, uncomplicated; F11.10 Opioid abuse, uncomplicated; Z88.0 Allergy status to penicillin; Z88.5 Allergy status to narcotic agent; Z79.899 Other long term (current) drug therapy; Z90.49 Acquired absence of other specified parts of digestive tract; Z59.0 Homelessness
CPT/HCPCS: 96372; 99285; J1630

== ENCOUNTER 2017-12-03 01:29 | Emergency (ER) | payer MEDICAID ==
[~2017-12-03] VITALS: Ht 172.7 cm; Wt 84.0 kg
[2017-12-03 02:39] LABS: BASOPHILS % (AUTO) 0.6 % (0.0-2.0); EOSINOPHILS % (AUTO) 5.9 % (1.0-6.0); HEMATOCRIT 46.8 % (41-53); HEMOGLOBIN 15.7 g/dL (13.5-17.5); LYMPHOCYTES # (AUTO) 2.5 K/uL (1.0-4.8); LYMPHOCYTES % (AUTO) 30.7 % (22.0-44.0); MEAN CORPUSCULAR HEMOGLOBIN 29.8 pg (26.0-34.0); MEAN CORPUSCULAR HGB CONC 33.6 G/dL (31.0-37.0); MEAN CORPUSCULAR VOLUME 89 fL (80-100); MONOCYTES # (AUTO) 0.9 K/uL (0.1-1.0); MONOCYTES % (AUTO) 11.5 % (2.0-9.0); NEUTROPHILS # (AUTO) 4.1 K/uL (1.8-7.7); NEUTROPHILS % (AUTO) 51.3 % (40.0-70.0); PLATELET COUNT (AUTO) 288 K/uL (150-450); RED BLOOD CELL COUNT(AUTO) 5.28 MIL/uL (4.50-5.90); RED CELL DISTRIBUTION WIDTH 13.4 % (11.5-14.5)
[2017-12-03 02:49] LABS: ANION GAP 6 mmol/L (8-16); CALCIUM, TOTAL 9.5 mg/dL (8.8-10.5); CARBON DIOXIDE 31 mmol/L (22-29); CHLORIDE 107 mmol/L (98-107); CREATININE 0.96 mg/dL (0.60-1.30); GLOMERULAR FILTR. RATE CALC > 60 mL/min (>60); GLUCOSE,RANDOM 88 mg/dL (70-110); POTASSIUM 4.8 mmol/L (3.5-5.1); SODIUM SERUM 144 mmol/L (136-145); UREA NITROGEN, BLOOD 11 mg/dL (7-18)
[2017-12-03 02:50] LABS: PROTHROMBIN TIME 10.3 SEC (9.4-11.6)
[2017-12-03 02:56] LABS: B-TYPE NATRIURETIC PEPTIDE 17 pg/mL (0-100)
[2017-12-03 03:14] LABS: ALANINE AMINOTRANSFERASE 109 U/L (12-78); ALBUMIN 3.8 g/dL (3.4-5.0); ALKALINE PHOSPHATASE 87 U/L (46-116); ASPARTATE AMINOTRANSFERASE 68 U/L (15-37); BILIRUBIN,TOTAL 0.6 mg/dL (0.1-1.0); CREATINE KINASE MB 4.4 ng/mL (0-5); CREATINE KINASE, TOTAL ONLY 825 U/L (39-308); TOTAL PROTEIN, SERUM 7.9 g/dL (6.4-8.2)
[2017-12-03 07:15] VITALS: BP 118/68
== END 2017-12-03 07:28 | disposition home or self-care (01) ==
LOC: EMS 01:30
DX: R07.9 Chest pain, unspecified (principal); G20 Parkinson's disease; R74.0 Nonspecific elevation of levels of transaminase and lactic acid dehydrogenase [LDH]; F11.90 Opioid use, unspecified, uncomplicated; F15.90 Other stimulant use, unspecified, uncomplicated; F17.210 Nicotine dependence, cigarettes, uncomplicated; G89.29 Other chronic pain; F20.9 Schizophrenia, unspecified; Q79.8 Other congenital malformations of musculoskeletal system; Z59.0 Homelessness; Z90.49 Acquired absence of other specified parts of digestive tract; Z88.0 Allergy status to penicillin; Z88.5 Allergy status to narcotic agent; Z79.899 Other long term (current) drug therapy
CPT/HCPCS: 93005; 99285

== ENCOUNTER 2018-05-23 19:59 | Emergency (ER) | payer MEDICAID ==
[~2018-05-23] VITALS: Ht 177.8 cm; Wt 68.2 kg
[2018-05-23 23:15] VITALS: BP 114/63
[2018-05-24] MEDS ORDERED: HYDROCODONE/ACETAMINOPHEN 5-325 MG TABLET PO ONE (03:45)
[2018-05-24] MEDS ORDERED: KETOROLAC TROMETHAMINE 30 MG/ML VIAL IM ONE (03:45)
== END 2018-05-24 05:12 | disposition home or self-care (01) ==
LOC: EMS 20:00
DX: G89.18 Other acute postprocedural pain (principal); F20.9 Schizophrenia, unspecified; F17.210 Nicotine dependence, cigarettes, uncomplicated; F19.90 Other psychoactive substance use, unspecified, uncomplicated; F11.90 Opioid use, unspecified, uncomplicated; Z59.0 Homelessness; Z90.49 Acquired absence of other specified parts of digestive tract; Z88.0 Allergy status to penicillin; Z88.5 Allergy status to narcotic agent
CPT/HCPCS: 99283; J1885

== ENCOUNTER 2019-05-26 04:41 | Emergency (ER) | payer MEDICAID ==
[~2019-05-26] VITALS: Ht 167.6 cm; Wt 63.6 kg
[~2019-05-26 04:41] MED LIST changes: +CHOL100018 PO; -VITAD1000 PO
[2019-05-26 13:00] VITALS: BP 120/70
== END 2019-05-26 13:58 | disposition home or self-care (01) ==
LOC: EMS 04:43
DX: F20.9 Schizophrenia, unspecified (principal); G20 Parkinson's disease; F17.210 Nicotine dependence, cigarettes, uncomplicated; F15.90 Other stimulant use, unspecified, uncomplicated; F11.90 Opioid use, unspecified, uncomplicated; Z59.0 Homelessness; Z79.899 Other long term (current) drug therapy; Z90.49 Acquired absence of other specified parts of digestive tract; Z88.0 Allergy status to penicillin; Z88.5 Allergy status to narcotic agent

== ENCOUNTER 2019-05-26 14:56 | Emergency (ER) | payer MEDICAID ==
[~2019-05-26] VITALS: Ht 157.5 cm; Wt 54.5 kg
[2019-05-26 18:34] VITALS: BP 113/78
== END 2019-05-26 18:44 | disposition home or self-care (01) ==
LOC: EMS 14:57
DX: F20.9 Schizophrenia, unspecified (principal); G20 Parkinson's disease; F15.90 Other stimulant use, unspecified, uncomplicated; F11.90 Opioid use, unspecified, uncomplicated; F17.210 Nicotine dependence, cigarettes, uncomplicated; Z79.899 Other long term (current) drug therapy; Z59.0 Homelessness; Z90.49 Acquired absence of other specified parts of digestive tract; Z98.890 Other specified postprocedural states; Z88.0 Allergy status to penicillin; Z88.5 Allergy status to narcotic agent; Z99.3 Dependence on wheelchair

== ENCOUNTER 2019-05-28 11:17 | Emergency (ER) | payer MEDICAID ==
[~2019-05-28] VITALS: Ht 182.9 cm; Wt 90.0 kg
[2019-05-28 13:45] VITALS: BP 118/67
== END 2019-05-28 15:15 | disposition home or self-care (01) ==
LOC: EDUNIT# 11:17 → EMS 11:20
DX: R45.851 Suicidal ideations (principal); F20.9 Schizophrenia, unspecified; J44.9 Chronic obstructive pulmonary disease, unspecified; F17.210 Nicotine dependence, cigarettes, uncomplicated; F12.90 Cannabis use, unspecified, uncomplicated; Z59.0 Homelessness; Z88.0 Allergy status to penicillin; Z88.5 Allergy status to narcotic agent

== ENCOUNTER 2019-05-29 14:34 | Emergency (ER) | payer MEDICAID ==
[~2019-05-29] VITALS: Ht 182.9 cm; Wt 90.0 kg
[2019-05-29 16:48] LABS: AMPHET/METH SCREEN,URINE NEGATIVE (NEGATIVE); BARBITURATE SCREEN, URINE NEGATIVE (NEGATIVE); BENZODIAZEPINES SCREEN,URINE NEGATIVE (NEGATIVE); CANNABINOID SCREEN,URINE NEGATIVE (NEGATIVE); COCAINE SCREEN,URINE NEGATIVE (NEGATIVE); METHADONE SCREEN, URINE NEGATIVE (NEGATIVE); OPIATE SCREEN,URINE NEGATIVE (NEGATIVE)
[2019-05-29 16:51] LABS: PHENCYCLIDINE SCREEN,URINE NEGATIVE (NEGATIVE)
[2019-05-29 16:52] LABS: BASOPHILS % (AUTO) 0.6 % (0.0-2.0); HEMATOCRIT 42.3 % (41-53); HEMOGLOBIN 13.9 g/dL (13.5-17.5); LYMPHOCYTES # (AUTO) 1.8 K/uL (1.0-4.8); LYMPHOCYTES % (AUTO) 26.5 % (22.0-44.0); MEAN CORPUSCULAR HEMOGLOBIN 30.4 pg (26.0-34.0); MEAN CORPUSCULAR VOLUME 92 fL (80-100); MONOCYTES # (AUTO) 0.8 K/uL (0.1-1.0); MONOCYTES % (AUTO) 12.7 % (2.0-9.0); NEUTROPHILS # (AUTO) 3.6 K/uL (1.8-7.7); NEUTROPHILS % (AUTO) 54.2 % (40.0-70.0); PLATELET COUNT (AUTO) 292 K/uL (150-450); RED BLOOD CELL COUNT(AUTO) 4.59 MIL/uL (4.50-5.90); RED CELL DISTRIBUTION WIDTH 13.5 % (11.5-14.5)
[2019-05-29 17:03] LABS: ANION GAP 8 mmol/L (8-16); CALCIUM, TOTAL 8.9 mg/dL (8.8-10.5); CARBON DIOXIDE 30 mmol/L (22-29); CHLORIDE 105 mmol/L (98-107); CREATININE 0.73 mg/dL (0.60-1.30); GLOMERULAR FILTR. RATE CALC > 60 mL/min (>60); GLUCOSE,RANDOM 84 mg/dL (70-110); POTASSIUM 4.2 mmol/L (3.5-5.1); SODIUM SERUM 143 mmol/L (136-145); UREA NITROGEN, BLOOD 9 mg/dL (7-18)
[2019-05-29 17:07] VITALS: BP 100/57
[2019-05-29 17:07] LABS: ALANINE AMINOTRANSFERASE 87 U/L (12-78); ALBUMIN 3.6 g/dL (3.4-5.0); ALKALINE PHOSPHATASE 116 U/L (46-116); ASPARTATE AMINOTRANSFERASE 40 U/L (15-37); BILIRUBIN,TOTAL 0.2 mg/dL (0.1-1.0); TOTAL PROTEIN, SERUM 7.5 g/dL (6.4-8.2)
== END 2019-05-29 18:09 | disposition home or self-care (01) ==
LOC: EMS 14:36
DX: F20.9 Schizophrenia, unspecified (principal); J44.9 Chronic obstructive pulmonary disease, unspecified; G20 Parkinson's disease; M19.90 Unspecified osteoarthritis, unspecified site; F17.210 Nicotine dependence, cigarettes, uncomplicated; F12.90 Cannabis use, unspecified, uncomplicated; Z79.899 Other long term (current) drug therapy; Z98.890 Other specified postprocedural states; Z88.0 Allergy status to penicillin; Z88.5 Allergy status to narcotic agent; Z59.0 Homelessness; Z99.3 Dependence on wheelchair
CPT/HCPCS: 36415; 80053; 80307; 85025; 99284; G0480